=== PATIENT | female | born 1985 | race Caucasian/White ===

== ENCOUNTER → 2016-05-20 | Outpatient (CLI) | payer BC ==
[2016-05-20 11:57] LABS: GLUCOSE DOSE 50 GRAMS
[2016-05-20 12:17] LABS: GLUCOSE 1 HR (GTT) 214 mg/dL
== END | disposition home or self-care (01) ==
LOC: SLAB 10:28
PROVIDERS: Advanced Practice Midwife
DX: Z34.90 Encounter for supervision of normal pregnancy, unspecified, unspecified trimester (principal)
CPT/HCPCS: 87806